=== PATIENT | male | born 1950 | race Caucasian/White ===

== ENCOUNTER 2018-10-10 01:45 | Emergency (ER) | payer MEDICARE ==
--- NOTE | 2018-10-10 01:58 | Emergency Department Record ---
History of Present Illness - General Chief complaint: Male Urogenital Problem Stated complaint: PULLED OUT CATH Time Seen by Provider: 10/10/18 01:51 Source: EMS Mode of Arrival: EMS Limitations: Altered mental status - History of Present Illness Initial comments: 68 yo male presents to ED for evaluation of urinary retention symptoms after "pulling out his ryder catheter" this afternoon. Patient was discharged from [facility] to [facility] this afternoon following ROBERT resulting from urinary retention and diagnosis of "altered mental status". Patient reports that he does not remember pulling out his catheter, however reports that he is currently at [facility] and the year is 2009. Nursing staff at [facility] attempted to replace his ryder catheter without success. Catheter has been out for approximately 10- 12 hours. Patient denies abdominal or penile pain. MD Complaint: Genital injury Onset/Timin -: Hour(s) Location: Penis Indwelling catheter Reports: Denies other symptoms - Related Data Allergies Allergy/AdvReac Type Severity Reaction Status Date / Time tamsulosin [From Flomax] Allergy PT UNSURE Verified 10/10/18 01:49 OF REACTION Review of Systems ROS unobtainable: Due to mental status Physical Exam - General General Appearance: Alert, Cooperative, No acute distress, Other (patient AOx1, believes he is at [facility], year 2009.) Limitations: Altered mental status - Head Head exam: Atraumatic, Normocephalic, Normal inspection Head exam detail: negative: Abrasion, Contusion, Miller's sign, General tenderness, Hematoma, Laceration - Eye Eye exam: Other (Clouding of the right cornea). negative: Conjunctival injection, Periorbital swelling, Periorbital tenderness, Scleral icterus - ENT Ear exam: negative: Auricular hematoma, Auricular trauma Nasal Exam: negative: Active bleeding, Discharge, Dried blood, Foreign body Mouth exam: negative: Drooling, Laceration, Muffled voice, Tongue elevation - Neck Neck exam: Normal inspection. negative: Meningismus, Tenderness - Respiratory Respiratory exam: Normal lung sounds bilaterally. negative: Rales, Respiratory distress, Rhonchi, Stridor - Cardiovascular Cardiovascular Exam: Regular rate, Normal rhythm, Normal heart sounds - GI/Abdominal GI/Abdominal exam: Soft. negative: Rebound, Rigid, Tenderness - Rectal Rectal exam: Deferred - exam: Other (Small area of laceration without bleeding to the posterior aspect of the meatus) - Extremities Extremities exam: Normal inspection. negative: Pedal edema, Tenderness - Back Back exam: Denies: CVA tenderness (R), CVA tenderness (L) - Neurological Neurological exam: Alert. negative: Motor sensory deficit - Psychiatric Psychiatric exam: Normal affect, Normal mood - Skin Skin exam: Normal color. negative: Abrasion Type of lesion: negative: abrasion Course Vital Signs 10/10/18 01:50 Temperature 98.5 F Pulse Rate [ 88 Pulse Ox Probe] Respiratory 16 Rate Blood Pressure 135/88 [Left Arm] Pulse Ox 100 - Reevaluation(s) Reevaluation #1: 10/10/18 02:01 Discharge summary from 10/09/18 at 1400 hours was reviewed. 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 Patient's refused IV antibiotics, patient was discharged on oral antibiotics. Per EMS, family members refused transport to [facility] for re-evaluation despite discharge from the facility 12 hours earlier. Bladder scan performed, patient is retaining 782 mL. Will attempt catheter replacement gently to avoid further urethral trauma, and if unable to pass catheter, will transport back to [facility] from ED. Reevaluation #2: 10/10/18 02:20 Ryder catheter was placed with return of clear urine, patient appears stable for discharge back to [facility] at this time. Per discharge instructions, patient is taking (2) oral antibiotics and should be covered for potential UTI. Patient has follow-up appointment with Dr. Isabel as well. Disposition Disposition: Discharge Clinical Impression: Urinary retention Disposition: Contact Center Manager Care Facility Condition: (2) Stable Instructions: Urinary Retention in Men (ED) Additional Instructions: Return to ED if your symptoms worsen or if you have any concerns. Continue your medications as prescribed. Follow-up with Dr. Isabel as scheduled. Forms: Patient Portal Access Time of Disposition: 02:22 Quality - Quality Measures Quality Measures: N/A - Blood Pressure Screening Does Patient Have Any of the Following: No Blood Pressure Classification: Pre-Hypertensive BP Reading Systolic Measurement: 135 Diastolic Measurement: 88 Screening for High Blood Pressure: < Pre-Hypertensive BP, F/U Documented > [G8950] Pre-Hypertensive Follow-up Interventions: Referral to alternative/primary care provider.
== END 2018-10-10 03:03 ==
LOC: ER 01:45
DX: R33.8 Other retention of urine (principal); R41.82 Altered mental status, unspecified
CPT/HCPCS: 99283

== ENCOUNTER 2018-11-08 22:32 | Emergency (ER) | payer MEDICARE ==
[2018-11-08] MEDS ORDERED: ZOLPIDEM TARTRATE 5 MG TABLET PO ONE (22:53)
--- NOTE | 2018-11-08 22:59 | Emergency Department Record ---
Anxiety - General Chief Complaint: Insomnia Stated Complaint: SLEEP DEPRIVATION - AGITATION Time Seen by Provider: 11/08/18 22:34 Source: Patient, Family () Mode of Arrival: Ambulatory Limitations: No limitations - History of Present Illness Initial Comments: Pt with and family to ED for inability to sleep for weeks. Sleeps for short bursts but not over an hour. Recent illness with hospital and rehab stay and medications were changed. Since that he is not sleeping. No fever, CP, HENRY, AP, N/V/D, no aggressive behavior and family feels safe in the home. The have tried Tylenol PM without relief. "Benadryl works the opposite for him". Tonight they are looking for help with him sleeping only. - Related Data Home Medications: Home Medications Medication Instructions Recorded Confirmed Last Taken No Home Med [NO HOME MEDS] 11/08/18 11/08/18 Unknown Allergies/Adverse Reactions: Allergies Allergy/AdvReac Type Severity Reaction Status Date / Time tamsulosin [From Flomax] Allergy Unknown PT UNSURE Verified 11/08/18 22:48 OF REACTION Travel Screening - Travel/Exposure Within Last 30 Days Have you traveled within the last 30 days?: No - Travel/Exposure Within Last Year Have you traveled outside the [place] in the last year?: No - Additonal Travel Details Have you been exposed to anyone with a communicable illness?: No - Travel Symptoms Symptom Screening: None Review of Systems Constitutional: Denies: Chills, Fever, Weakness Eyes: Denies: Eye discharge, Eye pain ENT: Denies: Congestion, Ear pain Respiratory: Denies: Cough, Dyspnea Cardiovascular: Denies: Arrhythmia, Chest pain, Syncope Endocrine: Denies: Fatigue Gastrointestinal: Denies: Abdominal pain, Diarrhea, Nausea, Vomiting Genitourinary: Denies: Dysuria Musculoskeletal: Denies: Back pain Skin: Denies: Bruising Neurological: Reports: As per HPI. Denies: Abnormal gait, Headache, Numbness, Weakness Psychiatric: Denies: Homicidal thoughts, Suicidal thoughts Hematological/Lymphatic: Denies: Anemia Past Medical History - SOCIAL HISTORY Smoking Status: Never smoker Alcohol Use: Rare Drug Use: None - RESPIRATORY Hx Respiratory Disorders: No - CARDIOVASCULAR Hx Cardio Disorders: Yes Hx Hypotension: Yes - NEURO Hx Neuro Disorders: No - GI Hx GI Disorders: No - Hx Genitourinary Disorders: Yes Hx Kidney Stones: Yes (ROBERT) Hx Prostate Problems: Yes (BPH) - ENDOCRINE Hx Endocrine Disorders: No - MUSCULOSKELETAL Hx Musculoskeletal Disorders: No - PSYCH Hx Psych Problems: Yes Hx Anxiety: Yes - HEMATOLOGY/ONCOLOGY Hx Hematology/Oncology Disorders: No Family Medical History Any Significant Family History?: No Family Hx Comment (NOT TO BE USED IN PLACE OF ITEMS BELOW): unknown Physical Exam - General General Appearance: Alert, Oriented x3, Cooperative, No acute distress - Head Head exam: Atraumatic - Eye Eye exam: Other (left eye with reactive pupil and full EOMI. Right eye with surgical changes and sight is to light only. ) - ENT ENT exam: Mucous membranes moist Ear exam: Normal external inspection Nasal Exam: Normal inspection - Neck Neck exam: Normal inspection, Full ROM. negative: Lymphadenopathy, Meningismus - Respiratory Respiratory exam: Normal lung sounds bilaterally. negative: Respiratory distress, Wheezes - Cardiovascular Cardiovascular Exam: Regular rate, Normal rhythm. negative: Tachycardia Peripheral Pulses: 2+: Radial (R), Radial (L) - GI/Abdominal GI/Abdominal exam: Soft, Normal bowel sounds. negative: Tenderness - Extremities Extremities exam: Normal inspection, Full ROM. negative: Tenderness - Back Back exam: Reports: Normal inspection. Denies: Paraspinal tenderness - Neurological Neurological exam: Alert, Normal gait, Oriented X3 - Psychiatric Psychiatric exam: Normal affect, Normal mood - Skin Skin exam: Normal color. negative: Rash Course Vital Signs 11/08/18 22:40 Temperature 97.9 F Pulse Rate 70 Respiratory 14 Rate Blood Pressure 153/91 Pulse Ox 99 - Reevaluation(s) Reevaluation #1: 11/08/18 23:00 family is comfortable taking him home with one pill for sleep. They are not interested in medical evaluation to night as he is under the care of many physicians over the past few months. He has an indwelling ryder due to urinary retention and prostate issues. Disposition Disposition: Discharge Clinical Impression: Insomnia Condition: (2) Stable Instructions: Insomnia (ED) Additional Instructions: At home take your Ambien. Be ready to sleep before taking the medicine. Family to watch patient closely tonight to assure no adverse effects of medication. Follow with your family doctor in one day. ONLY ONE TABLET OF AMBIEN provided. No prescription given. Time of Disposition: 22:55 Quality - Quality Measures Quality Measures: N/A - Blood Pressure Screening Does Patient Have Any of the Following: No Blood Pressure Classification: Hypertensive Reading Systolic Measurement: 153 Diastolic Measurement: 91 Screening for High Blood Pressure: < Pre-Hypertensive BP, F/U Documented > [G8950] Pre-Hypertensive Follow-up Interventions: Follow-up with rescreen every year.
== END 2018-11-08 23:10 | disposition home or self-care (01) ==
LOC: ER 22:32
DX: G47.00 Insomnia, unspecified (principal)
CPT/HCPCS: 99283 ×2; J3490

== ENCOUNTER 2018-11-15 23:34 | Emergency (ER) | payer MEDICARE ==
--- NOTE | 2018-11-15 23:48 | Emergency Department Record ---
History of Present Illness - General Stated complaint: CATH ISSUES Time Seen by Provider: 11/15/18 23:40 Source: Patient Mode of Arrival: Ambulatory Limitations: No limitations - History of Present Illness Initial comments: 68 yo male presents with a concern about the drainage of his ryder catheter. He believes it has not drained normally since yesterday. He has had a ryder in since August due to urinary retention. The catheter was last changed on Monday in [place] with his urologist. Neither he nor his know the name of the urologist. He has fullness discomfort in the suprapubic area. No blood in the bag but some noted at the meatus currently. No fevers, nausea, or vomiting. No leakage around the ryder. Urine is noted in the ryder. The states the catheter has been changed about 6-8 times 2 months. Complaint: Other -: Days(s) (1) Location: Penis Radiation: None Severity: Moderate Quality: Aching (Pressure) Consistency: Constant Improves with: None Worsens with: Other (Poorly draining ryder) Indwelling catheter Reports: Urinary retention - Related Data Previous Rx's Medication Instructions Recorded Cephalexin [Keflex] 500 mg PO QID #28 cap 11/16/18 Allergies Allergy/AdvReac Type Severity Reaction Status Date / Time tamsulosin [From Flomax] Allergy Unknown PT UNSURE Verified 11/15/18 23:52 OF REACTION Review of Systems Constitutional: Denies: Chills, Fever, Malaise, Weakness Eyes: Denies: Eye discharge, Eye pain ENT: Denies: Congestion, Throat pain Respiratory: Denies: Cough Cardiovascular: Denies: Chest pain, Syncope Endocrine: Denies: Fatigue Gastrointestinal: Reports: Abdominal pain. Denies: Diarrhea, Nausea, Vomiting Genitourinary: Reports: Retention. Denies: Discharge, Dysuria, Frequency, Hematuria Musculoskeletal: Denies: Arthralgia, Back pain, Neck pain Skin: Denies: Bruising, Change in color, Rash Neurological: Denies: Confusion, Headache Psychiatric: Denies: Anxiety Hematological/Lymphatic: Denies: Easy bleeding, Easy bruising Past Medical History - SOCIAL HISTORY Smoking Status: Never smoker Drug Use: None - RESPIRATORY Hx Respiratory Disorders: No - CARDIOVASCULAR Hx Cardio Disorders: Yes Hx Hypotension: Yes - NEURO Hx Neuro Disorders: No - GI Hx GI Disorders: No - Hx Genitourinary Disorders: Yes Hx Kidney Stones: Yes (ROBERT) Hx Prostate Problems: Yes (BPH) - ENDOCRINE Hx Endocrine Disorders: No - MUSCULOSKELETAL Hx Musculoskeletal Disorders: No - PSYCH Hx Psych Problems: Yes Hx Anxiety: Yes - HEMATOLOGY/ONCOLOGY Hx Hematology/Oncology Disorders: No Family Medical History Family Hx Comment (NOT TO BE USED IN PLACE OF ITEMS BELOW): unknown Physical Exam - General General Appearance: Alert, Oriented x3, Cooperative, No acute distress Limitations: No limitations - Head Head exam: Atraumatic, Normal inspection - Eye Eye exam: Normal appearance - ENT ENT exam: Normal exam, Mucous membranes moist Ear exam: Normal external inspection Nasal Exam: Normal inspection Mouth exam: Normal external inspection - Neck Neck exam: Normal inspection - Respiratory Respiratory exam: Normal lung sounds bilaterally. negative: Respiratory distress - Cardiovascular Cardiovascular Exam: Regular rate, Normal rhythm, Normal heart sounds - GI/Abdominal GI/Abdominal exam: Soft. negative: Distended, Guarding, Rebound, Rigid, Tenderness - exam: Circumcision. negative: Normal inspection (meatus mildly irritated with some blood noted), Scrotal swelling, Urethral discharge - Extremities Extremities exam: Normal inspection - Neurological Neurological exam: Alert - Psychiatric Psychiatric exam: Normal affect, Normal mood - Skin Skin exam: Dry, Intact, Normal color, Warm Course - Reevaluation(s) Reevaluation #1: Bladder scan consistent with retention. Likely greater than 500ml 11/15/18 23:48 The ryder was noted be obstructed by likely clot Per RN on removal the patient had a large amount of clotted blood 11/16/18 00:05 16 Fr standard was catheter unable to pass by the RN or myself I was informed there were no cudet tipped catheters available. Unfortunately given a standard catheter was unable to pass I was forced to improvise with his two day old catheter that had been kept in a clean condition. With significant force the clots were removed from the patients 16F cudet cath and this catheter placed to relieve his obstruction and pain. Antibiotics provided. I discuss this with the . 11/16/18 00:46 Disposition Disposition: Discharge Clinical Impression: Urinary retention Disposition: Home, Self-Care Condition: (1) Good Instructions: Urinary Retention in Men (ED), Ryder Catheter Placement and Care (ED) Additional Instructions: Call Dr Isabel in the morning for close follow up Been seen immediately if the ryder stops draining, bleeding, fever or any concerns. Take the antibiotic as directed Prescriptions: Cephalexin [Keflex] 500 mg PO QID #28 cap Time of Disposition: 00:45 Quality - Quality Measures Quality Measures: N/A - Blood Pressure Screening Does Patient Have Any of the Following: No Systolic Measurement: ~ Screening for High Blood Pressure: < Pre-Hypertensive BP, F/U Documented > [G8950] Pre-Hypertensive Follow-up Interventions: Referral to alternative/primary care provider.
[2018-11-16] MEDS: LORAZEPAM 0.5 MG TABLET PO ONE (00:31)
[2018-11-16] MEDS: CEPHALEXIN 500 MG CAPSULE PO STA ×2 (00:32→00:58)
== END 2018-11-16 00:55 | disposition home or self-care (01) ==
LOC: ER 23:34
DX: R33.8 Other retention of urine (principal)
CPT/HCPCS: 99283; 99284

== ENCOUNTER 2018-11-18 18:55 | Emergency (ER) | payer MEDICARE ==
[2018-11-18] MEDS ORDERED: RISPERIDONE 1 MG TABLET PO SCH (19:45)
--- NOTE | 2018-11-18 19:49 | Emergency Department Record ---
History of Present Illness - General Chief Complaint: Back Pain/Injury Stated Complaint: BACK PAIN/NO SLEEP 40 HOURS/NO HIMSELF Time Seen by Provider: 11/18/18 19:30 Source: Patient Mode of Arrival: Ambulatory Limitations: No limitations - History of Present Illness Initial Comments: 68 yo male presents to ED for evaluation of being unable to sleep for the past 40 hours, significant other reports intermittent episodes of insomnia leading to behavioral changes. SO reports that the patient was admitted 8 weeks to [facility] for UTI with mental status changes, was there for approximately 3 weeks and was discharged to [facility] rehabilitation at that time. SO reports that numerous psychiatric medications and morphine were discontinued between 3-5 weeks ago, reports difficulty sleeping and behavioral changes have no improved. Patient is going to establish with a new PCP in 48 hours, SO reports that the patient needs something to help him sleep to improve his symptoms. Patient was previously prescribed Ambien "that only helped him sleep for 2 hours". SO denies fevers, chills, or recent illness. MD Complaint: Other Onset/Timin -: Hour(s) Similar Symptoms Previously: Yes Radiation: None Severity: Moderate Consistency: Constant Improves With: None Worsens With: None Context: Unknown Associated Symptoms: Confusion - Related Data Previous Rx's Medication Instructions Recorded Cephalexin [Keflex] 500 mg PO QID #28 cap 11/16/18 Risperidone [Risperadol] 1 mg PO QHS #7 tablet 11/18/18 Allergies Allergy/AdvReac Type Severity Reaction Status Date / Time tamsulosin [From Flomax] Allergy Unknown PT UNSURE Verified 11/15/18 23:52 OF REACTION Travel Screening - Travel/Exposure Within Last 30 Days Have you traveled within the last 30 days?: No - Travel Symptoms Symptom Screening: Fatigue Review of Systems Constitutional: Denies: Chills, Fever, Malaise, Night sweats Eyes: Denies: Eye discharge, Eye pain ENT: Denies: Congestion, Ear pain, Epistaxis Respiratory: Denies: Cough, Dyspnea Cardiovascular: Denies: Chest pain, Dyspnea on exertion Endocrine: Denies: Fatigue, Heat or cold intolerance Gastrointestinal: Denies: Abdominal pain, Nausea, Vomiting Genitourinary: Denies: Incontinence, Retention Musculoskeletal: Denies: Arthralgia, Back pain, Gout, Joint swelling Skin: Denies: Bruising, Change in color Neurological: Reports: Confusion. Denies: Abnormal gait, Headache, Seizure Psychiatric: Denies: Anxiety Hematological/Lymphatic: Denies: Anemia, Blood Clots Past Medical History - SOCIAL HISTORY Smoking Status: Never smoker Alcohol Use: None Drug Use: None - RESPIRATORY Hx Respiratory Disorders: No - CARDIOVASCULAR Hx Cardio Disorders: Yes Hx Hypotension: Yes - NEURO Hx Neuro Disorders: No - GI Hx GI Disorders: No - Hx Genitourinary Disorders: Yes Hx Kidney Stones: Yes (ROBERT) Hx Prostate Problems: Yes (BPH) - ENDOCRINE Hx Endocrine Disorders: No - MUSCULOSKELETAL Hx Musculoskeletal Disorders: No - PSYCH Hx Psych Problems: Yes Hx Anxiety: Yes - HEMATOLOGY/ONCOLOGY Hx Hematology/Oncology Disorders: No Family Medical History Any Significant Family History?: No Family Hx Comment (NOT TO BE USED IN PLACE OF ITEMS BELOW): unknown Physical Exam - General General Appearance: Alert, Oriented x3, Cooperative, Mild distress, Other (Intermittent outbursts on examination) Limitations: Altered mental status (Chronic per SO) - Head Head exam: Atraumatic, Normocephalic, Normal inspection Head exam detail: negative: Abrasion, Contusion, Miller's sign, General tenderness, Hematoma, Laceration - Eye Eye exam: Normal appearance. negative: Conjunctival injection, Periorbital swelling, Periorbital tenderness, Scleral icterus - ENT Ear exam: negative: Auricular hematoma, Auricular trauma Nasal Exam: negative: Active bleeding, Discharge, Dried blood, Foreign body Mouth exam: negative: Drooling, Laceration, Muffled voice, Tongue elevation - Neck Neck exam: Normal inspection. negative: Meningismus, Tenderness - Respiratory Respiratory exam: Normal lung sounds bilaterally. negative: Rales, Respiratory distress, Rhonchi, Stridor - Cardiovascular Cardiovascular Exam: Regular rate, Normal rhythm, Normal heart sounds - GI/Abdominal GI/Abdominal exam: Soft. negative: Rebound, Rigid, Tenderness - Rectal Rectal exam: Deferred - exam: Deferred - Extremities Extremities exam: negative: Pedal edema, Tenderness - Back Back exam: Denies: CVA tenderness (R), CVA tenderness (L) - Neurological Neurological exam: Alert. negative: Motor sensory deficit - Psychiatric Psychiatric exam: Flat affect - Skin Skin exam: Normal color. negative: Abrasion Type of lesion: negative: abrasion Course Vital Signs 11/18/18 19:22 Temperature 98.8 F Pulse Rate [ 64 Left] Respiratory 16 Rate Blood Pressure 145/90 [Left Arm] Pulse Ox 96 - Reevaluation(s) Reevaluation #1: 11/18/18 19:46 Patient was seen and examined, family reports symptoms have been ongoing following recent discontinuation of all psychiatric and pain medications between 3-5 weeks ago. I discussed with the patient's family performing laboratory stud ies, urinalysis, and CT imaging of the head, patient's declined stating "this is all because he can't sleep-we just want something to help him sleep". Further evaluation was declined on examination. Will trial Risperdone 1 mg QHS for sleep and behavioral disturbance, patient has follow-up appointment in <48 hours. Patient appears stable for discharge at this time. Disposition Disposition: Discharge Clinical Impression: Insomnia Qualifiers: Insomnia type: unspecified Qualified Code(s): G47.00 - Insomnia, unspecified Disposition: Home, Self-Care Condition: (2) Stable Instructions: Insomnia (ED) Additional Instructions: Return to ED if your symptoms worsen or if you have any concerns. Risperdone as directed. Follow-up with your family doctor Monday as scheduled Prescriptions: Risperidone [Risperadol] 1 mg PO QHS #7 tablet Forms: Patient Portal Access Time of Disposition: 19:45 Quality - Quality Measures Quality Measures: N/A - Blood Pressure Screening Does Patient Have Any of the Following: No Blood Pressure Classification: Pre-Hypertensive BP Reading Systolic Measurement: 139 Diastolic Measurement: 87 Screening for High Blood Pressure: < Pre-Hypertensive BP, F/U Documented > [G8950] Pre-Hypertensive Follow-up Interventions: Referral to alternative/primary care provider.
== END 2018-11-18 20:03 | disposition home or self-care (01) ==
LOC: ER 18:55
DX: G47.00 Insomnia, unspecified (principal)
CPT/HCPCS: 99282; 99283